=== PATIENT | male | born 1950 | race Caucasian/White ===

== ENCOUNTER 2022-05-11 10:28 | Inpatient (IN) ==
[2022-05-11 10:51] LABS: ABS Eosinophils 0.2 10^3/ul (0-0.6); ABS Lymphocytes 0.9 10^3/ul (1.0-4.8); ABS Monocytes 0.7 10^3/ul (0-0.8); ABS Neutrophils 1.5 10^3/ul (1.5-7.7); Eosinophil % 5.9 %; Hematocrit 40 % (42-52); Hemoglobin 13.4 g/dL (14.0-18.0); Lymphocyte % 26.9 %; Mean Corpuscular HGB Conc 34 g/dL (31-36); Mean Corpuscular Hemoglobin 34 pg (27-31); Mean Corpuscular Volume 102 fL (80-94); Mean Platelet Volume 7.3 fL (7.4-10.4); Nucleated Red Blood Cells % 0.1; Platelet Count 219 10^3/uL (150-450); Red Blood Count 3.92 10^6 /uL (4.18-5.48); Red Cell Distribution Width 15 % (10-15); White Blood Count 3.2 10^3/uL (3.5-10.8)
[2022-05-11 11:03] LABS: INR 1.04 (0.89-1.11)
[2022-05-11 11:53] LABS: Albumin 4.1 g/dL (3.2-5.2); Albumin/Globulin Ratio 1.4 (1-3); Calcium 9.4 mg/dL (8.6-10.3); Globulin 2.9 g/dL (2-4); Potassium 4.9 mmol/L (3.5-5.0); Total Bilirubin 0.6 mg/dL (0.2-1.0); eGFR CKD-EPI 54.4 (>60)
[2022-05-11 12:31] LABS: High Sensitivity Troponin 1 Hr 5 pg/mL (<20)
[2022-05-11] MEDS ORDERED: Metoprolol Tartrate 5 mg VIAL 5 ml VIAL (1 mg/ml) IV ONE (13:31)
[2022-05-11] MEDS ORDERED: hydrALAZINE 20 mg/ml 1 ML Vial IV IV SLOW PU ONE ×2 (14:12)
[2022-05-11] MEDS: Enoxaparin 40 MG/0.4 ML SYR SUBCUT SCH (18:45)
[2022-05-12 06:39] LABS: ABS Eosinophils 0.2 10^3/ul (0-0.6); ABS Lymphocytes 0.8 10^3/ul (1.0-4.8); ABS Monocytes 0.6 10^3/ul (0-0.8); ABS Neutrophils 1.4 10^3/ul (1.5-7.7); Eosinophil % 7.1 %; Hematocrit 40 % (42-52); Hemoglobin 13.5 g/dL (14.0-18.0); Lymphocyte % 26.3 %; Mean Corpuscular HGB Conc 34 g/dL (31-36); Mean Corpuscular Hemoglobin 35 pg (27-31); Mean Corpuscular Volume 102 fL (80-94); Mean Platelet Volume 7.5 fL (7.4-10.4); Nucleated Red Blood Cells % 0.1; Platelet Count 205 10^3/uL (150-450); Red Blood Count 3.89 10^6 /uL (4.18-5.48); Red Cell Distribution Width 15 % (10-15)
[2022-05-12 07:03] LABS: Anion Gap 10 mmol/L (2-11); Blood Urea Nitrogen 21 mg/dL (6-24); CO2 Carbon Dioxide 24 mmol/L (22-32); Calcium 9.1 mg/dL (8.6-10.3); Chloride 101 mmol/L (101-111); Glucose 74 mg/dL (70-100); Potassium 4.1 mmol/L (3.5-5.0); Sodium 135 mmol/L (135-145); eGFR CKD-EPI 62.3 (>60)
[2022-05-12 15:20] LABS: High Sensitivity Troponin 1 Hr 11 pg/mL (<20)
[2022-05-12] MEDS ORDERED: hydrALAZINE 20 mg/ml 1 ML Vial IV IV SLOW PU ONE (15:22)
[2022-05-12] MEDS: Enoxaparin 40 MG/0.4 ML SYR SUBCUT SCH (15:45)
[2022-05-12 17:01] LABS: Cholesterol 141 mg/dL; Creatine Kinase 30 U/L (10-223); HDL Cholesterol 59.7 mg/dL; LDL Cholesterol 60 mg/dL; Triglycerides 108 mg/dL
[2022-05-12 17:27] LABS: Folate > 20.00 ng/mL (5.90-24.80)
[2022-05-12 17:30] LABS: Vitamin B12 164 pg/mL (180-914)
[2022-05-12 19:44] LABS: Magnesium 1.6 mg/dL (1.9-2.7)
[2022-05-13 07:16] LABS: ABS Eosinophils 0.1 10^3/ul (0-0.6); ABS Monocytes 0.6 10^3/ul (0-0.8); Eosinophil % 3.3 %; Hematocrit 38 % (42-52); Lymphocyte % 26.2 %; Mean Corpuscular HGB Conc 34 g/dL (31-36); Mean Corpuscular Hemoglobin 35 pg (27-31); Mean Corpuscular Volume 102 fL (80-94); Mean Platelet Volume 7.5 fL (7.4-10.4); Nucleated Red Blood Cells % 0.1; Platelet Count 208 10^3/uL (150-450); Red Blood Count 3.75 10^6 /uL (4.18-5.48); Red Cell Distribution Width 15 % (10-15); White Blood Count 3.8 10^3/uL (3.5-10.8)
[2022-05-13 08:15] LABS: Potassium 4.4 mmol/L (3.5-5.0); eGFR CKD-EPI 33.8 (>60)
[2022-05-13 08:38] LABS: TSH Ultra Thyroid Stim Horm 0.9 mcIU/mL (0.34-5.60)
[2022-05-13] MEDS ORDERED: Lactated Ringers 1000 ml BAG 1,000 ML IV ONE (14:51)
[2022-05-13 16:15] LABS: Calcium 9.3 mg/dL (8.6-10.3); Potassium 4.2 mmol/L (3.5-5.0)
[2022-05-13] MEDS: Enoxaparin 40 MG/0.4 ML SYR SUBCUT SCH (17:34)
[2022-05-14 07:23] LABS: ABS Eosinophils 0.2 10^3/ul (0-0.6); ABS Monocytes 0.5 10^3/ul (0-0.8); ABS Neutrophils 1.8 10^3/ul (1.5-7.7); Eosinophil % 5.4 %; Hematocrit 36 % (42-52); Hemoglobin 12.3 g/dL (14.0-18.0); Mean Corpuscular HGB Conc 34 g/dL (31-36); Mean Corpuscular Hemoglobin 34 pg (27-31); Mean Corpuscular Volume 101 fL (80-94); Mean Platelet Volume 7.2 fL (7.4-10.4); Platelet Count 207 10^3/uL (150-450); Red Blood Count 3.57 10^6 /uL (4.18-5.48); Red Cell Distribution Width 15 % (10-15); White Blood Count 3.5 10^3/uL (3.5-10.8)
[2022-05-14 07:40] LABS: Calcium 9.1 mg/dL (8.6-10.3); Potassium 4.2 mmol/L (3.5-5.0); eGFR CKD-EPI 35.7 (>60)
[2022-05-14 16:22] VITALS: BP 138/80
== END 2022-05-14 16:20 | disposition home or self-care (01) | DRG 948 ==
LOC: EDHOLD 10:28 → ED 10:28 → SUATTDRO 16:16 → MEDTELE 20:12
PROVIDERS: ADMIT Internal Medicine; ATTEND Hospitalist